=== PATIENT | male | born 1980 | race Caucasian/White ===

== ENCOUNTER 2021-07-18 12:28 | Inpatient (IN) | payer BC ==
[2021-07-18 13:45] LABS: #Lymphocytes 1.1 thou/uL (1.20-3.40); %Basophils 0.1 % (0.0-1.0); %Eosinophils 0.1 % (0.0-10.0); %Lymphocytes 8.2 % (21.0-51.0); %Monocytes 7.9 % (0.0-10.0); %Neutrophils 83.7 % (42.0-75.0); Hemoglobin 15.1 g/dL (14.0-18.0); Mean Corpuscular HGB CONC 34.2 g/dL (32.0-36.0); Mean Corpuscular Hemoglobin 31.6 pg (27.0-31.0); Mean Corpuscular Volume 92.5 fL (78.0-98.0); Mean Platelet Volume 6.6 fL (7.4-10.4); Platelet Count 328 thou/uL (130-400); RBC Distribution Width 12.6 % (11.5-14.5); Red Blood Cell (RBC) Count 4.78 mill/uL (4.70-6.10); White Blood Cell (WBC) Count 13.1 thou/uL (4.8-10.8)
[2021-07-18 13:53] LABS: Bilirubin Negative (Negative); Blood, Urine Negative (Negative); Clarity Clear (Clear); Glucose, Urine (Dipstick) Normal (Negative); Ketone, Urine Negative (Negative); Leukocyte Negative Leu/uL (Negative); Nitrite Negative (Negative); Protein, Urine (Dipstick) Negative (Neg-Trace); Specific Gravity, Urine 1.017 (1.002-1.036); Urobilinogen Normal mg/dL (Less than 2)
[2021-07-18 14:06] LABS: ALT (SGPT) 88 U/L (8-55); AST (SGOT) 80 U/L (5-34); Albumin 4.9 g/dL (3.5-5.0); Alkaline Phosphatase 97 U/L (40-110); Anion Gap 16 mmol/L (10-20); BUN (Urea Nitrogen) 19 mg/dL (8.9-20.6); Bilirubin, Total 0.8 mg/dL (0.2-1.2); Calc. Creatinine Clearance 0 mL/min (70-130); Calcium 9.4 mg/dL (7.8-10.44); Carbon Dioxide 23 mmol/L (22-29); Chloride 98 mmol/L (98-107); Globulin 3.3 g/dL (2.4-3.5); Glucose 101 mg/dL (70-105); Lipase 15 U/L (8-78); Potassium 4.1 mmol/L (3.5-5.1); Protein, Total 8.2 g/dL (6.0-8.3); Sodium 133 mmol/L (136-145)
[2021-07-18] MEDS ORDERED: Ondansetron ODT 4 MG TAB PO PRN (15:16)
[2021-07-18] MEDS ORDERED: Ondansetron PF 4 MG/2 ML Vial IVP PRN (15:16)
[2021-07-18] MEDS ORDERED: Dexamethasone 4 mg/ml Vial ONE (15:17)
[2021-07-18] MEDS ORDERED: diphenhydrAMINE 25 MG CAP PO PRN (15:29)
[2021-07-18] MEDS ORDERED: Morphine 2 MG/ML VIAL SLOW IVP PRN (15:29)
[2021-07-18] MEDS ORDERED: Acetaminophen 325 MG TAB PO PRN (15:29)
[2021-07-18 15:57] LABS: INR-International Normal Ratio 0.9; PTT 26.2 sec (22.9-36.1); Prothrombin Time 12.6 sec (12.0-14.7)
[2021-07-18 19:58] VITALS: BMI 33.2
[2021-07-18] MEDS: Sodium Chloride 0.9% 1,000 ML IV SCH (20:10)
[2021-07-18] MEDS: Acetaminophen/Codeine 30-300mg Tablet PO PRN (20:11)
[2021-07-18] MEDS: Famotidine 20 MG TAB PO SCH (20:11)
[2021-07-18] MEDS: Dexamethasone 4 mg/ml Vial SLOW IVP SCH ×2 (20:11→23:38)
[2021-07-18] MEDS ORDERED: ceFAZolin (BATCH) 2 GM in Premix Bag 1 BAG IVPB SCH (21:15)
[2021-07-19] MEDS: Acetaminophen/Codeine 30-300mg Tablet PO PRN ×3 (03:33→18:34)
[2021-07-19] MEDS: Sodium Chloride 0.9% 1,000 ML IV SCH ×2 (05:05→18:34)
[2021-07-19] MEDS: Dexamethasone 4 mg/ml Vial SLOW IVP SCH ×4 (05:59→23:18)
[2021-07-19] MEDS: traMADol HCl 50 MG TAB PO PRN ×3 (06:00→23:23)
[2021-07-19] MEDS: Famotidine 20 MG TAB PO SCH ×2 (09:39→20:42)
[2021-07-19 15:59] LABS: SARS-CoV-2 PCR by NAA Not Detected (NotDetected)
[2021-07-20] MEDS: Dexamethasone 4 mg/ml Vial SLOW IVP SCH ×3 (06:14→17:17)
[2021-07-20] MEDS: Sodium Chloride 0.9% 1,000 ML IV SCH ×2 (06:19→21:18)
[2021-07-20] MEDS: Famotidine 20 MG TAB PO SCH ×2 (08:15→21:19)
[2021-07-20] MEDS: Atorvastatin Calcium 20 MG TAB PO SCH (08:15)
[2021-07-20] MEDS: Lisinopril/Hydrochlorothiazide 20 mg/12.5 mg Tablet PO SCH (08:15)
[2021-07-20] MEDS ORDERED: fentaNYL Citrate/PF 100 MCG/2 ML SYRINGE ONE (11:37)
[2021-07-20] MEDS ORDERED: ceFAZolin (BATCH) 2 GM/100 ML BAG ONE (11:38)
[2021-07-20] MEDS ORDERED: Midazolam HCl 2 mg/2 ml Vial ONE (11:51)
[2021-07-20] MEDS ORDERED: Glycopyrrolate 0.2 MG/ML 5 ML SYRINGE ONE (11:53)
[2021-07-20] MEDS ORDERED: Ketorolac Tromethamine 30 MG/ML VIAL ONE (11:53)
[2021-07-20] MEDS ORDERED: Ondansetron PF 4 MG/2 ML Vial ONE (11:53)
[2021-07-20] MEDS ORDERED: Dexamethasone 20 MG/5 ML VIAL ONE (11:53)
[2021-07-20] MEDS ORDERED: PROPOFOL 200 MG/20 ML VIAL ONE (11:53)
[2021-07-20] MEDS ORDERED: Lidocaine 1% PF 5 ML VIAL ONE (11:53)
[2021-07-20] MEDS ORDERED: Rocuronium Bromide 10 MG/ML (10ML VIAL) ONE (11:53)
[2021-07-20] MEDS ORDERED: Promethazine HCl 25 MG/ML VIAL IVPB PRN (13:15)
[2021-07-20] MEDS ORDERED: Ondansetron HCl/PF 4 MG/2 ML Vial IVP PRN (13:15)
[2021-07-20] MEDS ORDERED: Promethazine HCl 25 MG/ML VIAL IM PRN (13:15)
[2021-07-20] MEDS: Acetaminophen/Codeine 30-300mg Tablet PO PRN ×2 (15:51→21:19)
[2021-07-20] MEDS: traMADol HCl 50 MG TAB PO PRN (17:13)
[2021-07-20] MEDS: ceFAZolin (BATCH) 2 GM in Premix Bag 1 BAG IVPB SCH (21:19)
[2021-07-21] MEDS: Dexamethasone 4 mg/ml Vial SLOW IVP SCH ×2 (00:34→06:12)
[2021-07-21] MEDS: ceFAZolin (BATCH) 2 GM in Premix Bag 1 BAG IVPB SCH (04:00)
[2021-07-21] MEDS: Acetaminophen/Codeine 30-300mg Tablet PO PRN ×2 (04:15→08:27)
[2021-07-21 08:14] VITALS: BP 156/89; TEMP 98.4
[2021-07-21] MEDS: Lisinopril/Hydrochlorothiazide 20 mg/12.5 mg Tablet PO SCH (08:24)
[2021-07-21] MEDS: Atorvastatin Calcium 20 MG TAB PO SCH (08:24)
[2021-07-21] MEDS: Famotidine 20 MG TAB PO SCH (08:24)
[2021-07-21] MEDS: Sodium Chloride 0.9% 1,000 ML IV SCH (09:29)
== END 2021-07-21 09:50 | disposition home or self-care (01) | DRG 520 ==
LOC: ERS 12:28 → SURG A 15:29
PROVIDERS: ADMIT Neurological Surgery; ATTEND Neurological Surgery
PROC: 0SB20ZZ Excision of Lumbar Vertebral Disc, Open Approach (ICD-10-PCS; principal; 2021-07-20)
PROC: 01NB0ZZ Release Lumbar Nerve, Open Approach (ICD-10-PCS; 2021-07-20)
DX: M51.26 Other intervertebral disc displacement, lumbar region (principal); Z20.822 Contact with and (suspected) exposure to COVID-19; E78.5 Hyperlipidemia, unspecified; E78.00 Pure hypercholesterolemia, unspecified; I10 Essential (primary) hypertension; Z79.899 Other long term (current) drug therapy
CPT/HCPCS: 36415; 51702; 72148; 76000; 80053; 81003; 83690; 85025; 85610; 85730; 96374; C1713; J0690; J1100; J1885; J2250; J2405; J2704; J3370; J7050; U0003; U0005

== ENCOUNTER 2023-09-01 10:33 | Emergency (ER) | payer BC ==
[2023-09-01] MEDS ORDERED: Morphine 4 MG/ML VIAL ONE (12:14)
== END 2023-09-01 13:03 | disposition home or self-care (01) ==
LOC: ERS 10:33
DX: M54.50 Low back pain, unspecified (principal); E78.00 Pure hypercholesterolemia, unspecified; I10 Essential (primary) hypertension; Z79.899 Other long term (current) drug therapy
CPT/HCPCS: 96372; 99283; J2270